=== PATIENT | female | born 1975 | race Caucasian/White ===

== ENCOUNTER 2024-03-22 13:54 | Outpatient (CLI) | payer MEDICAID, SELFPAY ==
[2024-03-22 16:02] LABS: HCG,Quantitative < 2 mIU/ml (0-5.42)
== END 2024-03-22 23:59 | disposition home or self-care (01) ==
PROVIDERS: Visit Provider Obstetrics & Gynecology
DX: N92.6 Irregular menstruation, unspecified (principal)
CPT/HCPCS: 36415; 84702

== ENCOUNTER 2025-04-06 10:56 | Outpatient (CLI) | payer MEDICAID, SELFPAY ==
--- OUTSIDE RECORDS SUMMARY | 2025-04-09 11:19 | XMS_ITS | Clinical Summary ---
Author Organization [facility] OFFICE [facility] [address] [facility] [address] [address] Care Team Providers Care Audio Visual Tech Name Role Phone Gonzales Stephens MD Unavailable Unavailable Allergies No known active allergies Medications * This document contains information received from the source organization and may not represent a complete record from that organization. albuterol (PROAIR HFA) 90 mcg/actuation Inhl HFA Aerosol InhalerIndications :Bronchitis Inhale 2 Puffs into the lungs every 6 hours as needed for Wheezing. 1 Inhaler 2 05/08/20 14 Active Additional Information Patient not taking.Reported on 07/22/2020 ipratropium (ATROVENT) 0.03 % Nasl [place], Non-AerosolIndicat ions:Cough 2 Sprays by Nasal route 3 times daily. 30 mL 03/28/20 18 Active Additional Information Patient not taking.Reason: Therapy Completed, Reported on 07/21/2020 fUROsemide (LASIX) 20 mg Oral TabletIndications: Leg swelling Take 1 Tablet by mouth daily as needed. 30 Tablet 5 07/02/19 23 Active busPIRone (BUSPAR) 10 mg Oral TabletIndications: Generalized anxiety disorder Take 1 Tablet by mouth daily. 30 Tablet 2 05/11/20 23 Active meloxicam (MOBIC) 7.5 mg Oral TabletIndications: Generalized osteoarthritis of multiple sites Take 1 Tablet by mouth daily. 30 Tablet 2 05/11/20 23 Active cyclobenzaprine (FLEXERIL) 5 mg Oral TabletIndications: Chronic midline low back pain without sciatica Take 1 Tablet by mouth every 8 hours as needed. for muscle spasm 30 Tablet 2 05/11/20 23 Active albuterol (PROVENTIL HFA;VENTOLIN HFA) 90 mcg/actuation Inhl HFA Aerosol InhalerIndications :Chronic obstructive pulmonary disease, unspecified COPD type (HCC) Inhale 2 Puffs into the lungs every 4 hours as needed for Wheezing or Shortness of Breath. 18 g 07/23/19 24 Active cetirizine (ZYRTEC) 10 mg Oral TabletIndications: Seasonal allergic rhinitis due to pollen Take 1 Tablet by mouth daily. for allergies/sinus 30 Tablet 07/23/19 24 Active FLUoxetine (PROZAC) 20 mg Oral CapsuleIndications :Generalized anxiety disorder Take 1 Capsule by mouth daily. 30 Capsule 07/23/19 24 Active umeclidinium-vilan teroL (ANORO ELLIPTA) 62.5-25 mcg/actuation Inhl Disk with DeviceIndications: Chronic obstructive pulmonary disease, unspecified COPD type (HCC) Inhale 1 Puff into the lungs daily. 60 Each 07/23/19 24 Active Active Problems Patient Care Coordination No te Formatting of this note migh t be different from the original. maycol 12/06/14 As expected [facility] audit completed by Agnes Ruiz RN on 03/12/2020. Problem Noted Date Diagnosed Date Chronic pain of both knees 11/17/2017 Assessment & Plan (11/17/2017 12:22 PM EDT): Minimally symptomatic, continue with the diclofenac and weight loss was emphasized, no need for steroid injection at this time Chronic midline low back pain without sciatica 0 11/17/2017 Assessment & Plan (11/17/2017 12:23 PM EDT): X-rays of the sacroiliac joints show sacroiliitis, were going to do a prednisone trial and reevaluate, ordered new labs (mainly ESR and CRP) before the prednisone trial. Localized osteoarthritis of hands, bilateral Assessment & Plan (11/17/2017 12:20 PM EDT): There is bilateral Heberden's and Ayleen's nodules, tenderness to palpation, no synovitis, recommended to avoid the stress in the hands to slow down the fast progression of the osteoarthritis Fibromyalgia 11/17/2017 Assessment & Plan (11/17/2017 12:22 PM EDT): She has all the typical tender points of fibromyalgia, she could not tolerate gabapentin in the past, I am not sure quite gabapentin was given previously. Continue with diclofenac 50 mg twice a day, Flexeril 5 mg nightly and in the next appointment we may yet a different kind of medication De Quervain's tenosynovitis, bilateral 8 Assessment & Plan (11/17/2017 12:20 PM EDT): There is bilateral Mabel maneuver, symptomatic, recommended exercises as well as heating pads, if no improvement splints for steroid injection Polyarthralgia 11/17/2017 Assessment & Plan (11/17/2017 12:21 PM EDT): Views workup for rheumatoid arthritis was negative, I am going to repeat inflammatory markers, the pain may be related to osteoarthritis and fibromyalgia. 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 James due to nonspecified spondyloarthropathy, there is no dactylitis, no rashes or inflammatory eyes (uveitis or iritis). She was on Humira in the past and she was feeling much better but it was discontinued because of insurance problems. Later on she was placed on a prednisone trial and she states that she was feeling much better. 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 Irritable bowel syndrome wit h both constipation and diarrhea 06/15/2014 Tobacco use in 11/23/2012 FER I (cervical intraepithelial neoplasia I) RO I (vulvar intraepithelial neoplasia I) 03/30 Anxiety 01/29/2012 Amphetamine and psychostimulant dependence, jefferson e pattern Resolved Problems Problem Noted Date Diagnosed Date Resolved Date Active labor 02/18/2013 05/08/2014 Vaginal delivery 02/18/2013 05/08/2014 AMA (advanced maternal age) multigravida 35+ 3 05/08/2014 Thrombocytopenia 11/23/2012 05/08/2014 Overview (02/14/2013): PLT 143 on 11/21/12 Partial placenta previa 09/29/2012 12/01/2014 Overview (12/28/2012): Repeat u/s 30-32 weeks. Resolved on follow up u/s. Unsure of LMP (last menstrua l period) as reason for ultrasound scan 07/13/2012 05/08/2014 Overview (07/13/2012): sono ordered Threatened 02/04/2012 02/23/20 12 Tobacco use in 01/29/2012 Overview (07/27/2012): Pt counseled tobacco use in is associated with PTL, PTD, increased respiratory infection in the first year of life, SIDS, ADHD Reviewed again Immunizations Immunization Administration Dates Next Due Influenza Vaccine, Unspecified Formulation 02/18 PPD Test 11/16/2016 Tdap 02/18/2013 Surgical History Surgery Date Site/Laterality Comments CHOLECYSTECTOMY COLPOSCOPY Medical History Medical History Date Comments Miscarriage x3 (8-10 wks) Tobacco use in 01/29/2012 Complete 02/04/12 Abnormal Pap smear and cervical HPV (human papil lomavirus) FER I (cervical intraepithelial neoplasia I) RO I (vulvar intraepithelial neoplasia I) 03/30 Ulcer Asthma 08/28/2014 Hypertension 2014 Amphetamine and psychostimul ant dependence, binge pattern (HCC) Family History Medical History Relation Name Comments Psoriasis Brother 1 Diabetes Maternal Grandmother Psoriasis Maternal Grandmother Osteoarthritis Mother Psoriasis Mother Relation Name Status Comments Brother 1 Alive Brother 2 Alive Daughter 1 Alive Daughter 2 Alive Daughter 3 Alive Father Alive Maternal Grandfather Maternal Grandmother Mother Alive Paternal Grandfather Paternal Grandmother Son Alive Social History Tobacco Use Types Packs/Day Years Used Date Smoking Tobacco: Every Day Cigarettes 1 32.7 Started: 07/27/1992 Smokeless Tobacco: Never Tobacco Cessation:Ready to Q uit: Not Asked; Counseling Given: Not Answered Alcohol Use Standard Drinks/Week Comments No 0 (1 standard drink = 0.6 oz pur e alcohol) PHQ-2 Answer Date Recorded PHQ-2 Total Score 0 07/02/2022 Sexually Active Control Partners Comments Yes Male Comments No Sex and Gender Information Value Date Recorded Sex Assigned at Not on file Legal Sex Female 12:16 AM EDT Gender Identity Not on file Sexual Orientation Not on file Obstetrics History Para Term AB IAB SAB Ectopic Multiple Livin g Live Births 7 4 4 3 3 4 6 Date Outcome GA Total Labor Labor/2nd/3rd Weight Sex Type Anes PTL Kimmy A1 A5 Name Clin 8 SAB Decea sed 8 SAB Decea sed 1998 Term 40w 0d 6 lb (2.722 kg) F Vag-S pont None Livin g Delivery Location:[facility] 2003 Term 42w 0d 6 lb (2.722 kg) M Vag-S pont Epidur al Livin g Delivery Location:[facility] Comments:occular aprax ia, ADHD 2006 Term 40w 0d 6 lb (2.722 kg) F Vag-S pont Epidur al Livin g Delivery Location:[facility] 2011 SAB 2012 Term 39w 5d 5 lb 14.7 oz (2.685 kg) F Vag-S pont Epidur al N Livin g 9 9 SKIRV IN,MED MAOSAY BABY A Rosaline France DO Delivery Location:[facility] Last Filed Vital Signs Vital Sign Reading Time Taken Comments Blood Pressure 128/74 07/02/2022 3:18 PM EST Pulse 94 08/05/2021 6:32 PM EST Temperature 36.4 C (97.6 F) 07/02/2022 3:18 PM EST Respiratory Rate 16 08/05/2021 5:33 PM EST Oxygen Saturation 95% 08/05/2021 6:32 PM EST Inhaled Oxygen Concentration - - Weight 96.2 kg (212 lb) 07/02/2022 3:18 PM EST Height 165.1 cm (5' 5 ) 07/02/2022 3:18 PM EST Body Mass Index 35.28 07/02/2022 3:18 PM EST Plan of Treatment Health Maintenance Due Date Last Done Comments Hepatitis B Vaccine (1 of 3 - 19+ 3-dose series) 1996 Pneumococcal Vaccine 0-49 (1 of 2 - PCV) 1996 HPV/Pap Cotest 10/28/2007 Cervical Cancer Screening 07/14/2015 Pap Smear 07/14/2015 07/14/2012, 01/29/2012 Breast Cancer Screening 2017 Cologuard 2022 Colon Cancer Screening 2022 Colonoscopy 2022 FIT 2022 Sigmoidoscopy 2022 Virtual Colonography 2022 DTaP/TDaP/Td (2 - Td or Tdap) 02/18/2023 02/18/2013 Annual Wellness Exam 07/02/2023 07/02/2022, 05/08/2014 COVID-19 Vaccine (1 - 2024-2 6 season) 2025 Influenza Vaccine (#1) 2025 6 (Declined), 05/08/2014 (Declined), 02/18/2013 Meningococcal B Vaccine Aged Out No l onger eligible based on patient's age to complete this topic Goals Goal Patient Goal Type Associated Problems Recent Progress Patient-Stated? Author Blood Pressure < 140/90 Blood Pressure 128/74(2022 3:18 PM EST) No Felisa Rick, MELVA Eat better, exercise, reach an ideal body weight General No Ann Newsome RMA Stay Tobacco Free Lifestyle No Ann Newsome RMA Procedures Procedure Name Priority Date/Time Associated Diagnosis Comments MENTAL HEALTH TECH CYTOLOGY REPORT Routine 07/14/2012 1 2:00 AM EST from Last 3 Months or Most Recently Relevant to Health Maintenance Results * MENTAL HEALTH TECH CYTOLOGY REPORT (07/14/2012 12:00 AM EST) Gliding Pilot Instructor Cytology Report PATIENT NAME:VAL WHEELER Gliding Pilot Instructor Cytology Report Accession Number Collected Date/Time Received Date/Time [id number] 07/14/12 00:00 EST 07/14/12 01:20 EST GY Specimen Source Specimen Vag/Cerv/Endocx?: Vag/Cerv/Endocerv Statement of Adequacy Satisfactory for Evaluation. Transformation Zone Present. Diagnosis NEGATIVE FOR INTRAEPITHELIAL LESION OR MALIGNANCY. Comment The Pap Smear is a screening test that aids in the detection of cervical cancer and cancer precursors. Both false positive and false negative results can occur. The test should be used at regular intervals, and positive results should be confirmed before definitive therapy. Processed using the [employer] Project Manager automated cytology screening device (Glow). Sliver Handler: DEEPA ALLEN 07/15/2012 Completed by: TEJAL Honeycutt (Electronically signed by) 07/15/2012 [facility] 07/14/2012 us Garett GARRIDO PATHOLOGY ORDERABLES Final Res ult [facility] [address] [place] [address] from Last 3 Months or Most Recently Relevant to Health Maintenance Insurance [place] [id number] [facility] [place] [id number] [facility] [employer] [place] [id number] [facility] Advance Directives For more information, please contact: [phone] * Full Code (Latest Code Status on File) Date Activated Date Inactivated Comments 07/27/2016 8:47 PM 07/29/2016 4:07 PM * Full Code Date Activated Date Inactivated Comments 02/18/2013 7:51 AM 02/19/2013 4:51 PM Care Teams Audio Visual Tech Relationship Specialty Start Date End Date Gonzales Stephens MD Physician Internal Medicine-Rheumatology 03/22/18
== END 2025-04-06 23:59 ==
LOC: LAB.DROPOF 04-09 10:57
PROVIDERS: Visit Provider Nurse Practitioner
DX: R35.0 Frequency of micturition (principal)
CPT/HCPCS: 87086; 87088; 87186